=== PATIENT | male | born 1975 | race Caucasian/White ===

== ENCOUNTER 2018-06-12 07:40 | Emergency (ER) | payer OTHER ==
[~2018-06-12] VITALS: Ht 182.9 cm; Wt 133.8 kg
[2018-06-12] MEDS ORDERED: SYMBICORT 160-4.5 MCG INHALER (07:49)
[2018-06-12] MEDS ORDERED: methylPREDNISolone SOD SUCC 125 MG/2 ML VIAL IV ONE (08:15)
[2018-06-12] MEDS ORDERED: FAMOTIDINE. 20 MG/2 ML VIAL IV ONE ×2 (08:15→08:16)
[2018-06-12] MEDS ORDERED: diphenhydrAMINE 50 MG/1 ML VIAL IV ONE (08:15)
--- NOTE | 2018-06-12 08:15 | NUR ---
Per pt he does not want to proceed with any treatment until he speaks to admitting about his insurance/coverage, ER admitting notified.
[2018-06-12] MEDS ORDERED: diphenhydrAMINE 50 MG/1 ML VIAL ONE (08:16)
[2018-06-12] MEDS ORDERED: methylPREDNISolone SOD SUCC 125 MG/2 ML VIAL ONE (08:16)
--- NOTE | 2018-06-12 09:08 | NUR ---
Patient discharged to home in stable conditon. Written and verbal after care instructions given. Patient verbalizes understanding of instructions.
== END 2018-06-12 09:09 | disposition home or self-care (01) ==
LOC: ER 07:42
DX: R60.9 Edema, unspecified (principal); J45.909 Unspecified asthma, uncomplicated; Z88.6 Allergy status to analgesic agent
CPT/HCPCS: 36415; A4663; J1200; J2930; J3490

== ENCOUNTER 2019-10-29 17:38 | Emergency (ER) | payer OTHER ==
[~2019-10-29] VITALS: Ht 182.9 cm; Wt 138.3 kg
--- NOTE | 2019-10-29 17:55 | NUR ---
Patient ambulated with stable gait. Speech is clear, speaks in complete sentences. A/Ox4. Patient came for flu-like symptoms: cough, fever, and chills. Patient reports being started on Tamiflu without actual confirmation of influenza test. Respiratory even and unlabored, no sob noted no wheezing. Denies any cp, n/v/d.
[2019-10-29] MEDS ORDERED: IV NORMAL SALINE 1000 ML BAG IV ONE (18:15)
[2019-10-29] MEDS ORDERED: ACETAMINOPHEN ES 500 MG TABLET PO ONE (18:15)
[2019-10-29 18:16] LABS: BASOPHILS % (AUTO) 0.4 % (0.0-2.0); EOSINOPHILS % (AUTO) 0.8 % (0.0-7.0); HEMATOCRIT 39.9 % (36.7-47.1); HEMOGLOBIN 13.4 g/dL (12.5-16.3); LYMPHOCYTES # (AUTO) 0.5 K/uL (20.0-40.0); LYMPHOCYTES % (AUTO) 11.8 % (20.5-51.5); MEAN CORPUSCULAR HEMOGLOBIN 27.3 uug (23.8-33.4); MEAN CORPUSCULAR HGB CONC 34 g/dL (32.5-36.3); MEAN CORPUSCULAR VOLUME 81.5 fL (73.0-96.2); MONOCYTES # (AUTO) 0.5 K/uL (2.0-10.0); MONOCYTES % (AUTO) 13.2 % (0.0-11.0); NEUTROPHILS # (AUTO) 2.8 K/uL (1.8-8.9); NEUTROPHILS % (AUTO) 73.8 % (38.5-71.5); PLATELET COUNT (AUTO) 141 K/uL (152-348); RED BLOOD CELL COUNT(AUTO) 4.89 MIL/uL (4.06-5.63); WHITE BLOOD COUNT (AUTO) 3.9 K/uL (3.6-10.2)
[2019-10-29] MEDS ORDERED: ACETAMINOPHEN ES 500 MG TABLET ONE (18:19)
[2019-10-29 18:23] LABS: CREATININE 1.4 mg/dL (0.6-1.3); POTASSIUM 3.3 mmol/L (3.5-5.1)
[2019-10-29 18:36] LABS: BILIRUBIN,DIRECT 0.1 mg/dL (0.0-0.2); BILIRUBIN,TOTAL 0.5 mg/dL (0.2-1.0); TOTAL PROTEIN, SERUM 6.9 g/dL (6.4-8.2)
--- NOTE | 2019-10-29 18:40 | NUR ---
Patient in bed NAD, VSS
[2019-10-29] MEDS ORDERED: predniSONE 20 MG TABLET PO ONE (18:45)
[2019-10-29] MEDS ORDERED: predniSONE 20 MG TABLET ONE (19:01)
[2019-10-29 19:37] VITALS: BP 112/75
--- NOTE | 2019-10-29 19:37 | NUR ---
Patient discharged to home in stable conditon. Written and verbal after care instructions given. Patient verbalizes understanding of instructions. IV removed. Catheter intact and site benign. Pressure and 4x4 gauze applied to site. No bleeding noted. Patient ambulated with stable gait.
== END 2019-10-29 19:38 | disposition home or self-care (01) ==
LOC: ER 17:38
DX: J20.9 Acute bronchitis, unspecified (principal); J10.1 Influenza due to other identified influenza virus with other respiratory manifestations; J45.909 Unspecified asthma, uncomplicated; Z88.4 Allergy status to anesthetic agent; Z79.899 Other long term (current) drug therapy
CPT/HCPCS: 36415; 71046; 80048; 80076; 83880; 84484; 85025; 87400; 93005; 99284; J7512; 70030-TC; A4663; A9150; J7030